=== PATIENT | male | born 1970 | race Caucasian/White ===

== ENCOUNTER 2016-07-25 11:30 | Outpatient (RCR) | payer BC ==
[2015-05-18 05:43] VITALS: BP 116/77
[~2016-07-25 11:30] MED LIST: PRAVASTATIN SOD40 MG PO
== END 2016-09-25 | disposition home or self-care (01) ==
LOC: PT
DX: M79.622 Pain in left upper arm (principal)

== ENCOUNTER 2017-06-18 23:43 | Emergency (ER) | payer BC ==
[~2017-06-18] VITALS: Ht 177.8 cm; Wt 89.2 kg
[2017-06-18] MEDS ORDERED: ZESTRIL5 M1 PO (23:59)
[2017-06-18] MEDS ORDERED: TESTOSTERO200 MG/1 M IM (23:59)
[2017-06-18] MEDS ORDERED: PANTOPRAZOLE SO40 MG PO (23:59)
[2017-06-19 01:04] LABS: ALBUMIN 4.3 g/dL (3.5-5.0); CALCIUM 9.2 mg/dL (8.4-10.2); POTASSIUM 4.1 mmol/L (3.6-5.0); TOTAL BILIRUBIN 1.2 mg/dL (0.2-1.3)
[2017-06-19 01:05] LABS: EOS # 0.1 (0.04-0.40); EOS % 0.6 % (0.0-4.0); HEMATOCRIT 45.2 % (42.0-52.0); HEMOGLOBIN 15.9 g/dL (13.5-18.0); MEAN CELL VOLUME 83 fl (78-100); MEAN CORPUSCULAR HEMOGLOBIN 29 pg (27-31); MEAN CORPUSCULAR HGB CONC 35 g/dL (33-37); MEAN PLATELET VOLUME 11.4 fl (7.4-10.4); MONO # 1.1 (0.20-0.80); NEU # 6.3 (1.40-6.50); PLATELET COUNT 239 K/mm3 (130-400); RED BLOOD COUNT 5.43 M/mm3 (4.20-5.60); RED CELL DISTRIBUTION WIDTH 12.8 % (11.5-14.5); WHITE BLOOD COUNT 9.5 K/mm3 (4.8-10.8)
[2017-06-19 01:13] LABS: PH-URINE 5.5 (5.0 - 8.0); URINE APPEARANCE HAZY; URINE BILIRUBIN NEGATIVE (NEGATIVE); URINE COLOR ORANGE; URINE GLUCOSE NEGATIVE (NEGATIVE); URINE KETONE 2+ (NEGATIVE); URINE PROTEIN(semi-quant) TRACE mg/dL (NEGATIVE)
[2017-06-19 01:14] LABS: URINE BLOOD NEGATIVE (NEGATIVE); URINE LEUKOCYTE ESTERASE TRACE (NEGATIVE); URINE MUCUS PRESENT (NOT PRESENT); URINE NITRATE NEGATIVE (NEGATIVE); URINE UROBILINOGEN NORMAL (NORMAL)
[2017-06-19 02:13] VITALS: BP 136/85
== END 2017-06-19 01:58 | disposition home or self-care (01) ==
LOC: ED 23:43
PROVIDERS: Nurse Practitioner Family
DX: F41.9 Anxiety disorder, unspecified (principal); G47.00 Insomnia, unspecified; E29.8 Other testicular dysfunction; I10 Essential (primary) hypertension; Z87.19 Personal history of other diseases of the digestive system

== ENCOUNTER → 2022-02-07 | Outpatient (CLI) | payer BC ==
[~2022-02-07] MED LIST changes: +PANTOPRAZOLE SO40 MG PO; +TESTOSTERO200 MG/1 M IM; +ZESTRIL5 M1 PO
== END ==
LOC: LAB 10:16
DX: Z30.09 Encounter for other general counseling and advice on contraception (principal)